=== PATIENT | male | born 1985 | race Asian ===

== ENCOUNTER 2019-02-06 11:49 | Emergency (ER) | payer OTHER, BC ==
[2019-02-06 12:02] VITALS: BP 118/85; PULSE 78; TEMP 98; BMI 26.6
[2019-02-06] MEDS ORDERED: LIDOCAINE 5% TOPICAL PATCH TP ONE (12:49)
[2019-02-06] MEDS ORDERED: diazePAM 5 MG TABLET PO ONE (12:49)
[2019-02-06] MEDS ORDERED: KETOROLAC TROMETHAMINE 30 MG/1 ML VIAL IM ONE (12:49)
[2019-02-06] MEDS ORDERED: LIDOCAINE 5% TOPICAL PATCH ONE (12:59)
[2019-02-06] MEDS ORDERED: KETOROLAC TROMETHAMINE 30 MG/1 ML VIAL ONE (12:59)
[2019-02-06] MEDS ORDERED: diazePAM 5 MG TABLET ONE (13:00)
--- NOTE | 2019-02-06 13:14 | PDOC ---
History of Present Illness - General Chief Complaint: Back Pain Stated Complaint: LOWER BACK PAIN Time Seen by Provider: 02/06/19 12:03 History Source: Patient Exam Limitations: No Limitations Past History - Past Medical History Allergies/Adverse Reactions: Allergies Allergy/AdvReac Type Severity Reaction Status Date / Time No Known Allergies Allergy Verified 02/06/19 12:02 Home Medications: Ambulatory Orders Diazepam [Valium] 5 mg PO Q8H PRN #15 tablet MDD 3 02/06/19 Ibuprofen [Motrin -] 600 mg PO QID PRN #28 tablet 02/06/19 Lidocaine 5% Patch [Lidoderm -] 1 patch TP DAILY #7 patch 02/06/19 COPD: No - Immunization History Immunization Up to Date: Yes - Suicide/Smoking/Psychosocial Hx Smoking History: Current every day smoker Information on smoking cessation initiated: No Hx Alcohol Use: No Drug/Substance Use Hx: No *Physical Exam - Vital Signs Last Vital Signs Temp Pulse Resp BP Pulse Ox 98.0 F 78 18 118/85 100 02/06/19 12:00 02/06/19 12:00 02/06/19 12:00 02/06/19 12:00 02/06/19 12:00 - Physical Exam General Appearance: Yes: Mild Distress (due to pain) Respiratory/Chest: positive: Lungs Clear, Normal Breath Sounds. negative: Respiratory Distress Cardiovascular: positive: Regular Rhythm, Regular Rate, S1, S2. negative: Murmur Gastrointestinal/Abdominal: positive: Normal Bowel Sounds, Soft. negative: Tender, Distended, Guarding, Rebound Musculoskeletal: positive: Muscle Spasm, Other (+L lumbar paravertebral tenderness). negative: Vertebral Tenderness Neurologic: positive: Alert, Normal Mood/Affect, Motor Strength 5/5. negative: Numbness, Sensory Deficit ED Treatment Course - Medications Given in the ED: ED Medications Discontinued Medications Generic Name Dose Route Start Last Admin Trade Name Freq PRN Reason Stop Dose Admin Diazepam 5 mg 02/06/19 12:49 02/06/19 13:06 Valium - PO 02/06/19 12:50 5 mg ONCE ONE Administration Ketorolac Tromethamine 30 mg 02/06/19 12:49 02/06/19 13:06 Toradol Injection - IM 02/06/19 12:50 30 mg ONCE ONE Administration Lidocaine 1 patch 02/06/19 12:49 02/06/19 13:06 Lidoderm Patch - TP 02/06/19 12:50 1 patch ONCE ONE Administration Medical Decision Making - Medical Decision Making 33 y/o M hx of herniated disc (unsure which part of spine), sciatica presents with LBP radiating down L leg after moving heavy box at work today. Took Alleve today without much relief. Patient learned of his herniated disc via MRI several years ago. Two months, he reinjured his back again at work after doing some heavy work as well; at that he had physical therapy done and saw NSSERGIO, who did x-ray of his spine which was unremarkable; was told a repeat MRI was not warranted at that time, but may consider in future if the pain re-occurs. Denies fever, sob, cp, abd pain, n/v, bowel/bladder incontinence, saddle paresthesia, weakness of extremities. Ddx: muscle spasm, worsening of sciatica; no current concern for cauda equina, spinal fracture Plan: Toradol, Valium, lidocaine patch, reassess 02/06/19 13:00 Patient feeling better on reassessment 02/06/19 13:36 *DC/Admit/Observation/Transfer Diagnosis at time of Disposition: Lower back pain Qualifiers: Chronicity: acute Back pain laterality: left Sciatica presence: with sciatica Sciatica laterality: sciatica of left side Qualified Code(s): M54.42 - Lumbago with sciatica, left side - Discharge Dispostion Disposition: HOME Condition at time of disposition: Improved Decision to Admit order: No - Prescriptions Prescriptions: Diazepam [Valium] 5 mg PO Q8H PRN #15 tablet MDD 3 PRN Reason: Muscle Spasms Ibuprofen [Motrin -] 600 mg PO QID PRN #28 tablet PRN Reason: Pain Lidocaine 5% Patch [Lidoderm -] 1 patch TP DAILY #7 patch - Referrals Referrals: Castillo Main MD [Staff Physician] - 1 week - Patient Instructions Printed Discharge Instructions: DI for Back Pain With Sciatica Additional Instructions: Thank you for choosing [facility]. It was a pleasure taking care of you. You may take Motrin 600 mg every 6 hours by mouth as needed for mild to moderate pain. Take Motrin with food. Take Valium as needed for muscle spasms. This medication can also make you drowsy so please be cautious with driving or performing heavy physical work. Use lidocaine patch for 12 hours, then remove for 12 hours You were referred to neurosurgery for further evaluation Return to the Emergency Department if your symptoms worsen or persist, you have shortness of breath, chest pain, severe abdominal pain, weakness of extremities, unable to control bowel/bladder movements, numbness around groin or other concerning symptoms. - Post Discharge Activity
== END 2019-02-06 13:44 | disposition home or self-care (01) ==
LOC: JERFT 11:49
PROC: 3E0233Z Introduction of Anti-inflammatory into Muscle, Percutaneous Approach (ICD-10-PCS; principal; 2019-02-06)
DX: M54.42 Lumbago with sciatica, left side (principal); X50.9XXA Other and unspecified overexertion or strenuous movements or postures, initial encounter; Y93.89 Activity, other specified; Y92.69 Other specified industrial and construction area as the place of occurrence of the external cause; Y99.0 Civilian activity done for income or pay
CPT/HCPCS: 99281-25